=== PATIENT | female | born 1960 | race Caucasian/White ===

== ENCOUNTER 2017-12-30 06:21 | Inpatient (IN) | payer BC ==
[~2017-12-30] VITALS: Ht 165.1 cm; Wt 83.1 kg
[~2017-12-30 06:21] MED LIST: BLAC540C PO; LISI-590 PO; MAGN400T2 PO; MULT-207 PO; OMEP40CA2 PO; OXYB5TAB8 PO; PLAV75TA29 PO; ZOCO20TA PO
[2017-12-30] MEDS ORDERED: ACETAMINOPHEN 1000 MG/100 ML 100 ML IV ONE (06:54)
[2017-12-30] MEDS ORDERED: CHLORHEXIDINE GLUCONATE 4% SOLN 120 ML BTL TOPICAL SCH (07:00)
[2017-12-30] MEDS ORDERED: POVIDONE IODINE 5% (ANTISEPSIS KIT) 4 APPLICATIONS EACH NARE PRN ×2 (07:00→10:00)
[2017-12-30] MEDS ORDERED: ceFAZolin 2 GM PREMIX 50 ML IV SCH (07:00)
[2017-12-30] MEDS ORDERED: VANCOMYCIN 1000 MG/NS 250 ML (for <70 kg) IV SCH ×2 (07:00)
[2017-12-30] MEDS ORDERED: CHLORHEXIDINE GLUCONATE 2 % 1 PACK (2 CLOTHS) TOPICAL PRN ×2 (07:00→10:00)
[2017-12-30] MEDS ORDERED: SODIUM CHLORID 0.9% 500 ML IV PRN ×2 (07:00→10:00)
[2017-12-30] MEDS ORDERED: LACTATED RINGER'S 1000 ML IV PRN ×2 (07:00→10:00)
[2017-12-30] MEDS ORDERED: METOPROLOL TARTRATE 25 MG TAB PO PRN ×2 (07:00→10:00)
[2017-12-30] MEDS ORDERED: GENTAMICIN SULFATE 80 MG/2 ML VIAL ONE (07:50)
[2017-12-30] MEDS ORDERED: NEOSTIGMINE 5 MG/5 ML SYRINGE IV PUSH ONE (12:07)
[2017-12-30] MEDS ORDERED: LIDOCAINE HCL 1% PF 5 ML SYRINGE OTHER ONE (12:07)
[2017-12-30] MEDS ORDERED: ROCURONIUM INJ 100 MG/10 ML VIAL IV ONE (12:07)
[2017-12-30] MEDS ORDERED: LACTATED RINGER'S 1000 ML INJ 2,000 ML IV ONE (12:07)
[2017-12-30] MEDS ORDERED: PROPOFOL 200 MG/20 ML AMP IV ONE (12:07)
[2017-12-30] MEDS ORDERED: ONDANSETRON HCL 4 MG/2 ML VIAL IV PUSH ONE (12:07)
[2017-12-30] MEDS ORDERED: DEXAMETHASONE SOD PHOS 4 MG/ML VIAL IV ONE (12:07)
[2017-12-30] MEDS ORDERED: ePHEDrine/NS 25 MG/5 ML SYRINGE IV ONE (12:07)
[2017-12-30] MEDS ORDERED: GLYCOPYRROLATE 1 MG/5 ML SYRINGE IV PUSH ONE (12:07)
[2017-12-30] MEDS ORDERED: PHENYLEPH/NS 1000 MCG/10 ML SYR IV ONE (12:07)
[2017-12-30] MEDS ORDERED: Post-op Orders (for Pharmacy) XX ONE (14:00)
[2017-12-30] MEDS ORDERED: ALUMINUM/MAGNESIUM/SIMETH 30 ML CUP PO PRN (14:00)
[2017-12-30] MEDS: PCA - TOTAL MG MORPHINE DELIVERED PER SHIFT SCH ×2 (14:00→22:00)
[2017-12-30] MEDS ORDERED: MORPHINE SULFATE 30 MG/30 ML PCA IV SCH (14:00)
[2017-12-30] MEDS ORDERED: ACETAMINOPHEN/HYDROcodone 325 MG/7.5 MG TAB PO PRN (14:00)
[2017-12-30] MEDS ORDERED: MORPHINE SULFATE 8 MG/ML INJ IV PUSH PRN (14:00)
[2017-12-30] MEDS ORDERED: BISACODYL 10 MG SUPP RECTAL PRN (14:00)
[2017-12-30] MEDS ORDERED: SOD PHOSPHATE/SOD BIPHOSPHATE (ADULT) ENEMA 133ML PR PRN (14:00)
[2017-12-30] MEDS ORDERED: NALOXONE HCL 0.4 MG/ML AMP IV PUSH PRN (14:00)
--- NOTE | 2017-12-30 14:04 | PD.OP ---
cc: Sae Santizo MD Operative Report Date of Surgery: Dec 30, 2017 Preoperative Diagnosis: Lumbar spinal stenosis, L5-S1. Spondylolisthesis L5-S1, grade 1. Left greater than right lumbosacral radiculopathy Postoperative Diagnosis: Same Procedure: Lumbar laminectomy from the left, L5, S1, subtotal facet resection, L5-S1. Posterior spinal fusion, L5-S1, lateral transverse process technique. Posterior lateral interbody fusion, L5-S1. Placement of interbody cage, L5-S1. Posterior spinal segmental instrumentation, L5-S1. Major bone grafting of the lumbar spine Anesthesia: General Surgeon: Sae Santizo Refinery Pipeline Operator(s): MANDEEP Sierra Operation and Findings: EBL: 100 ml NOTE: Crissy Sierra PA-C was present for the entire surgical procedure as my marketing assistant retail division. In my medical opinion her skill and care was necessary for proper management of this patient INDICATIONS: This patient is a 57-year-old female with significant back hip and leg pain left greater than right. Investigative studies shows evidence of a fairly high-grade foraminal stenosis bilaterally, worse on the left at the L5- S1 level associated with a grade 1 spondylolisthesis. The patient is painful and symptomatic. She has had extensive conservative care including epidural steroid injections, physical therapy, oral medications etc. Despite conservative care the patient continued to be painful. She presents for surgical treatment. INSTRUMENTATION: Spine wave PROCEDURE: The patient brought to the operating room and anesthetized the supine position. The patient positioned prone on the Giancarlo frame on the Matteo table. All pressure points are protected. The back was scrubbed with alcohol followed by Hibiclens followed by ChloraPrep and draped sterilely and antibiotics were given within a routine time window. A timeout was done. Lateral radiographic images used to identify the proper level for the procedure. Compared care for the preoperative studies. Skin markings were made anticipating surgical treatment. A left paramedian incision was made. The lamina and facet joint was exposed. We used a dilating retractor which was positioned over this region. The microscope was rolled into the field for visualization. A high-speed bur was used to take the lamina down and doing a subtotal facet resection. The exiting and crossing nerve roots were completely decompressed. A total discectomy was accomplished. The disc space was prepared. All cartilaginous material from the disc space was removed. A combination of demineralized bone matrix and Nucel stem cells were mixed together on the back table.. These were injected into the disc space. The cage was then placed according to burrer marker axle's recommendation and deployed. Position was satisfactory. Additional bone graft was placed into the disc space. The outer edge of the facet joint was identified and prepared. Under fluoroscopic images, a bur was used to gain entrance into the pedicle followed by placement of a blunt probe, an awl and placement of proper length screws. Each screw was charged with electric current there are no abnormal potentials registered in either lower extremity. A proper length octavio was fitted and attached and tightened according to burrer marker axle's recommendation. The wound was irrigated copiously. Bone grafting was placed along the lateral gutter in the region of the transverse process across this level. This was closed in layers with #1 Vicryl, 2-0 Vicryl and running intradermal 3-0 Vicryl followed by Steri-Strips and benzoin. On the contralateral side a separate exposure was made. The outer edge of the facet joints were identified. A bur was used to gain entrance into the pedicle followed by placement of a probe and proper length screws. Each screw was charged with electric current and no abnormal potentials registered in either lower extremity. The wound was irrigated copiously. Bone graft placed along the transverse process across this level. It was closed in layers using #1 Vicryl, 2-0 Vicryl and running intradermal 3-0 Vicryl followed by Steri-Strips and benzoin. Intraoperative radiographs were obtained. No complication was appreciated. The patient had a sterile dressing applied. The patient was awakened and taken to recovery room in satisfactory condition. FINDINGS: There was a high-grade foraminal stenosis and a moderate instability at L5-S1. The screw position appeared to be satisfactory. Alignment was satisfactory. There was no complication that was appreciated. Sae Santizo MD Dec 30, 2017 14:04
[2017-12-30] MEDS ORDERED: HYDR-3580 PO (14:07)
--- NOTE | 2017-12-30 14:12 | HHI.FF ---
Face to Face Verification Diagnosis: (1) Spinal stenosis of lumbar region Nursing RN Days per Week: 3 x Week(s): 1 Additional Instructions Dressing change 3 times per week I have seen patient Rosalia Hurtado on 12/30/17. My clinical findings support the need for the requested home health care services because: Limited ability to care for self I certify that my clinical findings support that this patient is homebound because: Unsteady gait/balance Sae Santizo MD Dec 30, 2017 14:12
[2017-12-30] MEDS ORDERED: WALKER WHEELS/F1 MIS (14:14)
[2017-12-30] MEDS ORDERED: ONDANSETRON ODT 4 MG TAB PO PRN (14:30)
[2017-12-30] MEDS ORDERED: DO NOT ADM ANY ANTICOAGULANT DRUGS PRN (14:37)
[2017-12-30] MEDS ORDERED: *morphine SULFATE 4 MG/ML PERIprocedure ONLY ONE ×2 (15:01→15:10)
[2017-12-30] MEDS ORDERED: MIDAZOLAM HCL 2 MG/2 ML VIAL ONE (15:15)
[2017-12-30] MEDS ORDERED: MORPHINE SULFATE 4 MG/ML INJ ONE ×2 (15:15)
[2017-12-30] MEDS: LACTATED RINGER'S 1000 ML INJ 1,000 ML IV SCH ×2 (15:35→22:01)
--- NOTE | 2017-12-30 16:41 | RADRPT ---
EXAM DATE: 12/30/2017 4:36 PM EDT AGE/SEX: 57 years / Female INDICATIONS: Fusion L5,S1 with screws and rods placement. CLINICAL DATA: This is the patient's initial encounter. Patient reports that signs and symptoms have been present for 1 day and indicates a pain score of Nonresponsive. MEDICAL/SURGICAL HISTORY: None. None. COMPARISON: No prior exams available for comparison. FINDINGS: AP and lateral views of the inferior lumbar spine demonstrate posterior spinal hardware at L5-S1 mate rial in the L5-S1 disc space. Hardware consists of bilateral pedicular screws. There appears to be so me degree of anterolisthesis of L5 on S1 but measurement cannot be obtained on this image. CONCLUSION: Posterior spinal hardware at L5-S1. There is some degree of anterolisthesis of L5 on S1. Electronically signed by: Austen Escobar MD 12/30/2017 4:40 PM EDT
[2017-12-30 16:58] VITALS: BP 140/80; PULSE 75; RESP 16; TEMP 97.5; O2SAT 100
[2017-12-30 20:19] VITALS: BP 117/65; PULSE 78; RESP 18; TEMP 98.7; O2SAT 100
[2017-12-30] MEDS ORDERED: ZOLPIDEM TARTRATE 5 MG TAB PO PRN (21:00)
[2017-12-30] MEDS ORDERED: PRAVASTATIN SOD 40 MG TAB PO SCH (22:00)
[2017-12-30] MEDS ORDERED: OXYBUTYNIN CHLORIDE 5 MG TAB PO SCH (22:00)
[2017-12-30] MEDS ORDERED: LISINOPRIL 10 MG TAB PO SCH (22:00)
[2017-12-30 23:44] VITALS: BP 110/55; PULSE 89; RESP 17; TEMP 98.4; O2SAT 96
[2017-12-31 03:12] VITALS: BP 153/84; PULSE 78; RESP 17; TEMP 98.3; O2SAT 100
[2017-12-31] MEDS: PCA - TOTAL MG MORPHINE DELIVERED PER SHIFT SCH (06:00)
[2017-12-31] MEDS: ACETAMINOPHEN/HYDROcodone 325 MG/7.5 MG TAB PO PRN ×2 (06:35→11:15)
--- NOTE | 2017-12-31 07:50 | HHI.DCPOC ---
Discharge Care Plan Diagnosis: (1) Spinal stenosis of lumbar region Your Health Problems Are: Anxiety Incision/Drains Swelling Goals to Promote Your Health * To prevent worsening of your condition and complications * To maintain your health at the optimal level Directions to Meet Your Goals Take your medications as prescribed Follow your dietary instruction Follow activity as directed Keep your appointments as scheduled Take your immunizations and boosters as scheduled If your symptoms worsen call your PCP, if no PCP go to Urgent Care Center or Emergency Room Smoking is Dangerous to Your Health. Avoid second hand smoke Call the 24-hour hour crisis hotline for domestic abuse at Melissa Nayak Dec 31, 2017 07:50
--- NOTE | 2017-12-31 07:52 | HHI.DS ---
Discharge Summary Admission Date Dec 30, 2017 at 06:21 Discharge Date: Dec 31, 2017 Admitting Diagnosis see below Diagnosis: (1) Spinal stenosis of lumbar region Diagnosis: Principal ICD Codes: M48.061 - Spinal stenosis, lumbar region without neurogenic claudication Procedures Laminectomy and lumbar fusion L5S1, posterior spinal instrumentation, interbody cage and bone graft. Brief History This is a 57 year old female patient Significant Findings Laboratory Tests Test 12/31/17 06:57 Hospital Course pod#1 HHC. Ok to resume plavix pod#3 Pt Condition on Discharge: Stable Discharge Disposition: Disch w/ Home Health Serv Discharge Instructions Diet Instructions: As Tolerated, No Restrictions, High Fiber Diet Activities You Can Perform: Weight Bearing as Annamarie, See Additionl Instruction Activities to Avoid: Strenuous Activity Additional Activity Instruc.: Brace when out of bed New Medications: Walker with Front Wheels (Walker with Front Wheels) 1 Mis Mis EA .XX DIRECTED, #1 0 Refills Hydrocodone/Acetaminophen (Hydrocodone-Acetamin 7.5-325) 7.5 Mg-325 Mg Tablet 1 TAB PO Q4H PRN for Pain, #42 TAB Continued Medications: Black Cohosh Extract (Black Cohosh) 40 Mg Cap 40 MG PO DAILY, #1 BOTTLE Clopidogrel (Plavix) 75 Mg Tab 75 MG PO DAILY for Blood Clot Prevention, #30 TAB 0 Refills Lisinopril (Zestril) 10 Mg Tab 10 MG PO DAILY for Blood Pressure Management, #30 TAB 0 Refills Magnesium Oxide (Magnesium Oxide) 400 Mg Tab 400 MG PO DAILY for Nutritional Supplement, TAB 0 Refills Multiple Vitamin (One Daily) 1 Tab 1 TAB PO DAILY for Nutritional Supplement, TAB 0 Refills Omeprazole (Omeprazole) 40 Mg Cap 40 MG PO DAILY, #30 CAP 0 Refills Oxybutynin (Ditropan) 5 Mg Tab 5 MG PO DAILY for Urinary Symptom Managemen, #60 TAB 0 Refills Simvastatin (Zocor) 20 Mg Tab 20 MG PO DAILY for Cholesterol Management, #30 TAB 0 Refills Melissa Nayak Dec 31, 2017 07:52
--- NOTE | 2017-12-31 07:56 | PD.ORT.PN ---
Subjective Subjective Remarks Doing well. Her back is 'really tight'. Her left leg feels better. She has some anxiety earlier this morning. They changed her medications. She was able to get to sleep which helped. No concerns of CP or SOB at this time. Questions about surgery. She has 2 daughters at home to help her. Objective Vitals Vital Signs Date Time Temp Pulse Resp B/P (MAP) Pulse Ox O2 Delivery O2 Flow Rate FiO2 12/31/17 03:12 98.3 78 17 153/84 (107) 100 12/30/17 23:44 98.4 89 17 110/55 (73) 96 12/30/17 20:54 Room Air 12/30/17 20:19 98.7 78 18 117/65 (82) 100 12/30/17 18:25 12/30/17 16:58 97.5 75 16 140/80 (100) 100 12/30/17 16:20 97.5 75 16 157/79 (105) 100 Nasal Cannula 2 12/30/17 16:00 76 20 155/99 (117) 100 Nasal Cannula 2 12/30/17 15:30 63 20 151/83 (105) 100 Nasal Cannula 2 12/30/17 15:15 63 16 148/79 (102) 100 Nasal Cannula 2 12/30/17 15:00 70 16 143/78 (99) 100 Nasal Cannula 2 12/30/17 14:45 69 15 143/70 (94) 100 Nasal Cannula 2 12/30/17 14:35 97.7 79 15 138/67 (90) 100 Nasal Cannula 2 I/O 12/30/17 12/30/17 12/30/17 12/31/17 12/31/17 12/31/17 07:00 15:00 23:00 07:00 15:00 23:00 Intake Total 1800 ml 350 ml 460 ml Output Total 350 ml 65 ml 1125 ml Balance 1450 ml 285 ml -665 ml Intake Oral 360 ml IV Total 350 ml 100 ml Other 1800 ml Output Urine Total 250 ml 65 ml 1125 ml Estimated Blood Loss 100 ml # Bowel Movements 0 Procedures Laminectomy and lumbar fusion L5S1, posterior spinal instrumentation, interbody cage and bone graft. Objective Remarks Sitting up in bed NAD VSS L/S Dressings intact, minimal drainage, mild swelling and spasm, no erythema +motor ehl/GS, +sens, +nvi neg homans bilat Assessment & Plan Ortho Post Op Day #: 1 Problem List: (1) Spinal stenosis of lumbar region ICD Codes: M48.061 - Spinal stenosis, lumbar region without neurogenic claudication Qualifiers: Qualified Codes: M48.062 - Spinal stenosis, lumbar region with neurogenic claudication Assessment and Plan pod#1 s/p Lami/Fusion L5S1 Doing well today. Back pain but controlled with PO meds. Did better on the Scott than the IV meds. Will change her script. Hold dressing changes unless saturated. Brace part time flexible clerk when out of bed for 10-12 weeks. Ice to lumbar spine bid. IS encouraged for the next 3-5 days. Ok to d/c home today. HHC written for one week. F/U in 2 weeks as scheduled. Melissa Nayak Dec 31, 2017 07:56
[2017-12-31 08:00] VITALS: BP 127/60; PULSE 78; RESP 16; TEMP 97.8; O2SAT 100
[2017-12-31 08:00] LABS: HEMATOCRIT 30.2 % (35.0-46.0); HEMOGLOBIN 9.6 GM/DL (11.6-15.3)
[2017-12-31] MEDS ORDERED: PANTOPRAZOLE SOD 40 MG DELAYED RELEASE TAB PO SCH (09:00)
[2017-12-31] MEDS ORDERED: MAGNESIUM OXIDE 400 MG TAB PO SCH (09:00)
[2017-12-31] MEDS ORDERED: DOCUSATE SODIUM 100 MG CAP PO SCH (21:00)
== END 2017-12-31 12:08 | disposition home health service (06) | DRG 455 ==
LOC: HSDI 06:21 → N06B 16:34
PROVIDERS: ADMIT Orthopaedic Surgery Orthopaedic Surgery of the Spine; ATTEND Orthopaedic Surgery Orthopaedic Surgery of the Spine
PROC: 0SG30J1 Fusion of Lumbosacral Joint with Synthetic Substitute, Posterior Approach, Posterior Column, Open Approach (ICD-10-PCS; 2017-12-30)
PROC: 0ST40ZZ Resection of Lumbosacral Disc, Open Approach (ICD-10-PCS; 2017-12-30)
PROC: 0SG30AJ Fusion of Lumbosacral Joint with Interbody Fusion Device, Posterior Approach, Anterior Column, Open Approach (ICD-10-PCS; principal; 2017-12-30 10:39)
DX: M48.07 Spinal stenosis, lumbosacral region (principal); I10 Essential (primary) hypertension; K21.9 Gastro-esophageal reflux disease without esophagitis; M54.17 Radiculopathy, lumbosacral region; M43.17 Spondylolisthesis, lumbosacral region; M19.90 Unspecified osteoarthritis, unspecified site; F41.9 Anxiety disorder, unspecified; Z79.02 Long term (current) use of antithrombotics/antiplatelets
CPT/HCPCS: 72100; 76000; 85014; 85018; 86850; 86900; 86901; C1713; J0131; J0690; J1100; J1580; J2250; J2270; J2370; J2405; J2710; J3010; J3370; J7050; J7120